=== PATIENT | male | born 1940 | race Caucasian/White ===

== ENCOUNTER 2022-12-28 03:52 | Emergency (ER) | payer MEDICARE, BC ==
[~2022-12-28] VITALS: Ht 170.2 cm; Wt 76.7 kg
[2022-12-28] MEDS ORDERED: NS 1,000 ML IV ONE (04:30)
[2022-12-28] MEDS ORDERED: ALLO100T PO (04:48)
[2022-12-28] MEDS ORDERED: ACIT1CAP2 PO (04:48)
[2022-12-28] MEDS ORDERED: AMLO25TA PO (04:49)
[2022-12-28] MEDS ORDERED: COLE625T17 PO (04:50)
[2022-12-28 04:53] LABS: BASO % 0.2 % (0.0-1.0); EOS % 0.1 % (0.0-3.0); HEMATOCRIT 41.1 % (42.0-52.0); HEMOGLOBIN 13.4 g/dl (13.5-17.5); LYMPH # 1.1 10^3/uL (1.5-5.0); LYMPH % 9.9 % (24.0-44.0); MEAN CORPUSCULAR HEMOGLOBIN 32.8 pg (27.0-33.0); MEAN CORPUSCULAR HGB CONC 32.6 g/dl (32.0-36.5); MEAN CORPUSCULAR VOLUME 100.5 fl (80.0-96.0); MONO # 0.8 10^3/uL (0.0-0.8); NEUTROPHILS # 9.2 10^3/uL (1.5-8.5); NEUTROPHILS % 82.4 % (36.0-66.0); PLATELET COUNT, AUTOMATED 198 10^3/uL (150-450); RED BLOOD COUNT 4.09 10^6/uL (4.30-6.10); WHITE BLOOD COUNT 11.2 10^3/uL (4.0-10.0)
[2022-12-28 05:16] LABS: LIPASE 31 U/L (12-53)
[2022-12-28 05:18] LABS: ALBUMIN 3.6 G/DL (3.2-5.2); ALKALINE PHOSPHATASE 53 U/L (46-116); ALT/SGPT 16 U/L (7.0-40); AST/SGOT 15 U/L (<34); BILIRUBIN,DIRECT 0.2 MG/DL (<0.4); BILIRUBIN,TOTAL 0.7 MG/DL (0.3-1.2); BLOOD UREA NITROGEN 26 MG/DL (9-23); CALCIUM LEVEL 8.2 MG/DL (8.3-10.6); CARBON DIOXIDE LEVEL 24 MMOL/L (20-31); CHLORIDE LEVEL 107 MMOL/L (98-107); CK-MB VALUE MASS < 1.0 NG/ML (<3.6); CREATININE FOR GFR 1.33 MG/DL (0.70-1.30); GLOMERULAR FILTRATION RATE 54.7 (>35); GLUCOSE, FASTING 120 MG/DL (74-106); POTASSIUM SERUM 4.8 MMOL/L (3.5-5.1); SODIUM LEVEL 139 MMOL/L (136-145); TOTAL PROTEIN 6.2 G/DL (5.7-8.2)
[2022-12-28 05:21] LABS: CPK CREATINE PHOSPHOKINASE 85 U/L (46-171); MB/CK RELATIVE INDEX 1.17 (< OR =4)
[2022-12-28 06:17] LABS: CK-MB VALUE MASS < 1.0 NG/ML (<3.6); CPK CREATINE PHOSPHOKINASE 75 U/L (46-171); MB/CK RELATIVE INDEX 1.33 (< OR =4)
[2022-12-28] MEDS ORDERED: PERC5TAB12 PO (08:42)
[2022-12-28] MEDS ORDERED: FLOM0.4C39 PO (08:42)
[2022-12-28 08:54] VITALS: BP 125/81; TEMP 97.2; O2SAT 96
== END 2022-12-28 09:01 | disposition home or self-care (01) ==
LOC: M ED 03:52
DX: N20.1 Calculus of ureter (principal); I10 Essential (primary) hypertension; E78.5 Hyperlipidemia, unspecified; M10.9 Gout, unspecified; Z79.899 Other long term (current) drug therapy